=== PATIENT | female | born 1965 | race Two or more races ===

== ENCOUNTER 2017-05-31 16:46 | Emergency (ER) | payer OTHER, SELFPAY ==
[~2017-05-31] VITALS: Ht 160 cm; Wt 60.6 kg
[2017-05-31 16:49] VITALS: BP 129/82
== END 2017-05-31 18:46 | disposition home or self-care (01) ==
LOC: ED 18:25
DX: S63.630A Sprain of interphalangeal joint of right index finger, initial encounter (principal); S63.632A Sprain of interphalangeal joint of right middle finger, initial encounter; G43.909 Migraine, unspecified, not intractable, without status migrainosus; G89.11 Acute pain due to trauma; W19.XXXA Unspecified fall, initial encounter; Y93.89 Activity, other specified; Y92.410 Unspecified street and highway as the place of occurrence of the external cause; Y99.8 Other external cause status
CPT/HCPCS: 99284

== ENCOUNTER 2017-06-10 18:27 | Inpatient (IN) | payer OTHER ==
[~2017-06-10] VITALS: Ht 157.5 cm; Wt 60.5 kg
[2017-06-10] MEDS ORDERED: ASPIRIN 81 MG TABLET CHEW ONE (18:58)
[2017-06-10] MEDS ORDERED: MORPHINE SULFATE 4 MG/ML, 1ML ONE (18:58)
[2017-06-10] MEDS ORDERED: MECLIZINE CHEWABLE 25 MG TAB ONE (18:58)
[2017-06-10] MEDS ORDERED: ONDANSETRON 2MG/ML, 2ML ONE ×2 (18:59)
[2017-06-10] MEDS ORDERED: SODIUM CHLORIDE 0.9% 1,000ML IVBOLUS ONE (19:00)
[2017-06-10] MEDS ORDERED: MORPHINE SULFATE 4 MG/ML, 1ML IVPush PRN (19:00)
[2017-06-10] MEDS ORDERED: MECLIZINE CHEWABLE 25 MG TAB PO ONE (19:00)
[2017-06-10] MEDS ORDERED: ONDANSETRON 2MG/ML, 2ML IVPush ONE (19:00)
[2017-06-10] MEDS ORDERED: ASPIRIN 81 MG TABLET CHEW PO ONE (19:00)
[2017-06-10] MEDS ORDERED: SODIUM CHLORIDE FLUSH 10ML SYR IVF ONE (19:00)
[2017-06-10 19:06] LABS: HEMATOCRIT 44.9 % (34.6-47.8); WHITE BLOOD COUNT 7.1 x10^3/uL (3.4-10)
[2017-06-10 19:18] LABS: ASPARTATE AMINO TRANSFERASE 21 U/L (15-37); BLOOD UREA NITROGEN 20 mg/dL (7-18)
[2017-06-10 19:23] LABS: IS PT STATUS REG ER OR PRE ER? YES
[2017-06-10] MEDS ORDERED: SUMA25TA3 PO (20:47)
[2017-06-10 21:47] VITALS: BP 169/85
[2017-06-10] MEDS ORDERED: ATOR40TA78 PO (23:09)
[2017-06-10] MEDS ORDERED: TOPI50TA8 PO (23:11)
[2017-06-11] MEDS ORDERED: ONDANSETRON 2MG/ML, 2ML IVPush PRN
[2017-06-11] MEDS ORDERED: TEMAZEPAM 15 MG CAPSULE PO PRN
[2017-06-11] MEDS ORDERED: morphine SULFATE 10 MG/ML, 1ML IVPush PRN
[2017-06-11] MEDS: ENOXAPARIN 40 MG/0.4 ML SQ SCH ×2 (00:01→23:53)
[2017-06-11 00:12] LABS: IS PT STATUS REG ER OR PRE ER? NO
[2017-06-11 01:54] VITALS: BP 135/75
[2017-06-11] MEDS: ASPIRIN 325 MG TABLET EC PO SCH (06:00)
[2017-06-11 06:01] LABS: IS PT STATUS REG ER OR PRE ER? NO
[2017-06-11 07:04] VITALS: BP 130/81
[2017-06-11] MEDS ORDERED: REGADENOSON 0.4 MG/5 ML SYRINGE ONE (08:09)
[2017-06-11] MEDS: TOPIRAMATE 25 MG TABLET PO SCH (08:12)
[2017-06-11] MEDS: SODIUM CHLORIDE 0.9% 1,000 ML IV SCH ×3 (08:12→18:07)
[2017-06-11 12:23] VITALS: BP_SYST 157; BP_SYST 158; BP_DIAS 84; BP_DIAS 97
[2017-06-11 12:25] VITALS: BP 153/91
[2017-06-11 13:12] VITALS: BP 143/80
[2017-06-11] MEDS: MECLIZINE CHEWABLE 25 MG TAB PO PRN ×2 (18:07→23:53)
[2017-06-11] MEDS ORDERED: VENL150C6 PO (19:39)
[2017-06-11 20:27] VITALS: BP 162/87
[2017-06-11] MEDS: ACETAMINOPHEN 325 MG TABLET PO PRN (21:27)
[2017-06-12] MEDS: SODIUM CHLORIDE 0.9% 1,000 ML IV SCH ×2 (01:47→11:00)
[2017-06-12 01:49] VITALS: BP 148/81
[2017-06-12 04:56] VITALS: BP 151/82
[2017-06-12 05:21] LABS: BLOOD UREA NITROGEN 14 mg/dL (7-18)
[2017-06-12] MEDS: ASPIRIN 325 MG TABLET EC PO SCH (06:25)
[2017-06-12] MEDS ORDERED: MECL-85 PO (07:08)
[2017-06-12 07:09] VITALS: BP 149/77
[2017-06-12] MEDS: TOPIRAMATE 25 MG TABLET PO SCH (08:44)
[2017-06-12] MEDS: ACETAMINOPHEN 325 MG TABLET PO PRN (08:44)
[2017-06-12] MEDS: MECLIZINE CHEWABLE 25 MG TAB PO PRN (10:34)
== END 2017-06-12 13:30 | disposition home or self-care (01) | DRG 684 ==
LOC: ED 20:34 → EDIP 20:41 → 5SO 21:44
PROVIDERS: ADMIT Internal Medicine; ATTEND Internal Medicine
DX: N17.0 Acute kidney failure with tubular necrosis (principal); E78.5 Hyperlipidemia, unspecified; E86.0 Dehydration; R11.0 Nausea; G43.909 Migraine, unspecified, not intractable, without status migrainosus; R00.0 Tachycardia, unspecified; R42 Dizziness and giddiness
CPT/HCPCS: 36415; 70450; 71010; 78452; 80048; 80053; 80061; 81003; 83880; 84443; 84484; 85025; 93005; 93017; 96361; 96374; J1650; J2405; J2785; A9502; C9898; J7030

== ENCOUNTER → 2017-12-25 | Outpatient (CLI) | payer OTHER ==
[~2017-12-25] MED LIST: ATOR40TA78 PO; MECL-85 PO; SUMA25TA3 PO; TOPI50TA8 PO; VENL150C6 PO
== END ==
LOC: RAD 16:10
PROVIDERS: ATTEND Physician Assistant
DX: S52.592A Other fractures of lower end of left radius, initial encounter for closed fracture (principal); X58.XXXA Exposure to other specified factors, initial encounter; Y93.89 Activity, other specified; Y92.89 Other specified places as the place of occurrence of the external cause; Y99.8 Other external cause status

== ENCOUNTER 2018-01-03 12:14 | Day surgery (SDC) | payer OTHER ==
[2018-01-02 08:33] VITALS: BP 141/105
[~2018-01-03] VITALS: Ht 157.5 cm; Wt 59.8 kg
[~2018-01-03 12:14] MED LIST changes: +CITA10TA8 PO
[2018-01-03] MEDS ORDERED: LACTATED RINGERS 1,000 ML IV SCH (13:03)
[2018-01-03] MEDS ORDERED: ONDANSETRON ODT 8 MG ONE (13:13)
[2018-01-03] MEDS ORDERED: ACETAMINOPHEN 500 MG TABLET ONE (13:13)
[2018-01-03] MEDS ORDERED: ACETAMINOPHEN 500 MG TABLET PO ONE (13:30)
[2018-01-03] MEDS ORDERED: ONDANSETRON ODT 8 MG PO ONE (13:30)
[2018-01-03] MEDS ORDERED: MIDAZOLAM 1 MG/ML, 2ML ONE (14:11)
[2018-01-03] MEDS ORDERED: KETOROLAC 30 MG/1 ML ONE (14:38)
[2018-01-03] MEDS ORDERED: ALBUTEROL/IPRATROPIUM 2.5MG/0.5MG, 3 ML NPPB PRN (15:30)
[2018-01-03] MEDS ORDERED: DIAZEPAM 5 MG/ML, 2ML IVPush PRN (15:30)
[2018-01-03] MEDS ORDERED: FENTANYL PF 100 MCG/2ML IV PRN (15:30)
[2018-01-03] MEDS ORDERED: OXYcodone 5 MG/5 ML ORAL.SOL UDC PO PRN (15:30)
[2018-01-03] MEDS ORDERED: LABETALOL 5MG/ML, 20ML IV PRN (15:30)
[2018-01-03] MEDS ORDERED: hydrALAzine 20 MG/ML, 1ML IV PRN (15:30)
[2018-01-03] MEDS ORDERED: MEPERIDINE/PF 25MG/0.5ML IVPush PRN (15:30)
[2018-01-03] MEDS ORDERED: morphine SULFATE 10 MG/ML, 1ML IV PRN (15:30)
[2018-01-03] MEDS ORDERED: ONDANSETRON 2MG/ML, 2ML IVPush PRN (15:30)
[2018-01-03] MEDS ORDERED: METOCLOPRAMIDE 5 MG/ML, 2ML IV PRN (15:30)
[2018-01-03] MEDS ORDERED: PROMETHAZINE 25 MG/ML, 1ML IV PRN (15:30)
[2018-01-03] MEDS ORDERED: MIDAZOLAM 1 MG/ML, 2ML IV PRN (15:30)
[2018-01-03] MEDS ORDERED: PROMETHAZINE 12.5 MG SUPP PR PRN (15:30)
[2018-01-03] MEDS ORDERED: PROPOFOL 10 MG/ML, 20ML ONE (16:01)
[2018-01-03] MEDS ORDERED: DEXAMETHASONE 4 MG/ML, 1ML ONE (16:01)
[2018-01-03] MEDS ORDERED: ONDANSETRON 2MG/ML, 2ML ONE (16:01)
[2018-01-03] MEDS ORDERED: CEFAZOLIN 1,000 MG ONE (16:01)
[2018-01-03] MEDS ORDERED: OXYcodone 5 MG/5 ML ORAL.SOL UDC ONE (16:55)
== END 2018-01-03 18:10 | disposition home or self-care (01) ==
LOC: OUT 12:14
PROVIDERS: ATTEND Orthopaedic Surgery
DX: S52.572A Other intraarticular fracture of lower end of left radius, initial encounter for closed fracture (principal); E78.5 Hyperlipidemia, unspecified; G43.909 Migraine, unspecified, not intractable, without status migrainosus; X58.XXXA Exposure to other specified factors, initial encounter; Y93.89 Activity, other specified; Y92.89 Other specified places as the place of occurrence of the external cause; Y99.8 Other external cause status
CPT/HCPCS: 25609; 73100; 76001; C1713; C1762; J0690; J1100; J1885; J2250; J2704; J7120; Q0162; J2405

== ENCOUNTER 2018-07-18 15:39 | Emergency (ER) | payer OTHER ==
[~2018-07-18] VITALS: Ht 139.7 cm; Wt 59.0 kg
[2018-07-18] MEDS ORDERED: ONDANSETRON ODT 4 MG PO ONE (16:00)
[2018-07-18 16:09] LABS: BASOPHILS # (AUTO) 0.02 x10^3/uL (0-0.1); BASOPHILS % (AUTO) 0 % (0-1); EOSINOPHILS # (AUTO) 0.19 x10^3/uL (0-0.4); EOSINOPHILS % (AUTO) 3 % (1-7); LYMPHOCYTES # (AUTO) 2.51 x10^3/uL (1-3.4); LYMPHOCYTES % (AUTO) 33 % (22-44); MD NO; MEAN CORPUSCULAR HEMOGLOBIN 30.4 pg (27.0-34.8); MEAN CORPUSCULAR HGB CONC 34.1 g/dL (32.4-35.8); MEAN CORPUSCULAR VOLUME 89.2 fL (80-100); MEAN PLATELET VOLUME 8.6 fL (7.4-10.4); MONOCYTES # (AUTO) 0.48 x10^3/uL (0.2-0.8); MONOCYTES % (AUTO) 6 % (2-9); NEUTROPHILS # (AUTO) 4.41 x10^3/uL (1.8-6.8); NEUTROPHILS % (AUTO) 58 % (42-75); PLATELET COUNT 354 x10^3/uL (130-400); RED BLOOD COUNT 5.26 x10^6/uL (3.82-5.3); RED CELL DISTRIBUTION WIDTH 12.7 % (9.6-15.2)
[2018-07-18] MEDS ORDERED: FAMOTIDINE 20 MG/2 ML ONE (16:09)
[2018-07-18] MEDS ORDERED: MAALOX/HYOSCYAMINE/LIDOCAINE 45 ML BTL ONE (16:09)
[2018-07-18] MEDS ORDERED: ONDANSETRON ODT 4 MG ONE (16:09)
[2018-07-18 16:22] LABS: ALANINE AMINOTRANSFERASE 25 U/L (12-78); ALBUMIN 4.3 g/dL (3.4-5.0); ANION GAP 3 mmol/L (5-15); CHLORIDE 106 mmol/L (98-107); CREATININE 1.01 mg/dL (0.55-1.02)
[2018-07-18 16:24] LABS: ALKALINE PHOSPHATASE 119 U/L (45-117); BILIRUBIN,TOTAL 0.3 mg/dL (0.2-1.0); TOTAL PROTEIN 8.4 g/dL (6.4-8.2)
[2018-07-18] MEDS ORDERED: MAALOX/HYOSCYAMINE/LIDOCAINE 45 ML BTL PO ONE (16:30)
[2018-07-18] MEDS ORDERED: FAMOTIDINE 20 MG/2 ML IVP ONE (16:30)
[2018-07-18 16:54] LABS: TROPONIN I < 0.015 ng/mL (0.000-0.045)
[2018-07-18] MEDS ORDERED: SUMA100T4 PO (17:49)
[2018-07-18] MEDS ORDERED: ONDA4TAB13 SL (17:49)
[2018-07-18] MEDS ORDERED: SIMV20TA3 PO (17:49)
[2018-07-18 17:50] VITALS: BP 123/76
== END 2018-07-18 18:12 | disposition home or self-care (01) ==
LOC: ED 18:08
DX: K29.00 Acute gastritis without bleeding (principal); K59.00 Constipation, unspecified; G43.909 Migraine, unspecified, not intractable, without status migrainosus
CPT/HCPCS: 36415; 74022; 76700; 80053; 83690; 84484; 85025; 93005; 96374; 99285; Q0162; S0028

== ENCOUNTER 2018-07-24 23:35 | Emergency (ER) | payer OTHER ==
[~2018-07-24] VITALS: Ht 154.9 cm; Wt 60.0 kg
[~2018-07-24 23:35] MED LIST changes: +ONDA4TAB13 SL; +SIMV20TA3 PO; +SUMA100T4 PO
[2018-07-25] MEDS ORDERED: SODIUM CHLORIDE 0.9% 1,000 ML IV ONE (00:02)
[2018-07-25] MEDS ORDERED: ONDANSETRON 2MG/ML, 2ML ONE (00:16)
[2018-07-25] MEDS ORDERED: MORPHINE SULFATE 4 MG/ML, 1ML ONE (00:17)
[2018-07-25] MEDS ORDERED: MORPHINE SULFATE 4 MG/ML, 1ML IVPush PRN (00:30)
[2018-07-25] MEDS ORDERED: SODIUM CHLORIDE 0.9% 1,000ML IVBOLUS ONE (00:30)
[2018-07-25] MEDS ORDERED: ONDANSETRON 2MG/ML, 2ML IVPush ONE (00:30)
[2018-07-25] MEDS ORDERED: SODIUM CHLORIDE FLUSH 10ML SYR IVF ONE (00:30)
[2018-07-25 00:31] LABS: BASOPHILS # (AUTO) 0.01 x10^3/uL (0-0.1); BASOPHILS % (AUTO) 0 % (0-1); EOSINOPHILS # (AUTO) 0.11 x10^3/uL (0-0.4); EOSINOPHILS % (AUTO) 1 % (1-7); LYMPHOCYTES # (AUTO) 2.45 x10^3/uL (1-3.4); LYMPHOCYTES % (AUTO) 22 % (22-44); MD NO; MEAN CORPUSCULAR HEMOGLOBIN 30.7 pg (27.0-34.8); MEAN CORPUSCULAR HGB CONC 34.1 g/dL (32.4-35.8); MONOCYTES # (AUTO) 0.49 x10^3/uL (0.2-0.8); MONOCYTES % (AUTO) 4 % (2-9); NEUTROPHILS # (AUTO) 8.05 x10^3/uL (1.8-6.8); NEUTROPHILS % (AUTO) 73 % (42-75); PLATELET COUNT 340 x10^3/uL (130-400); RED CELL DISTRIBUTION WIDTH 12.5 % (9.6-15.2)
[2018-07-25 00:36] LABS: ALANINE AMINOTRANSFERASE 32 U/L (12-78); ALBUMIN 4.4 g/dL (3.4-5.0); ANION GAP 9 mmol/L (5-15); CALCIUM 9.4 mg/dL (8.5-10.1); CHLORIDE 103 mmol/L (98-107); CREATININE 1.17 mg/dL (0.55-1.02)
[2018-07-25 00:38] LABS: ALKALINE PHOSPHATASE 111 U/L (45-117); BILIRUBIN,TOTAL 0.3 mg/dL (0.2-1.0); TOTAL PROTEIN 8.7 g/dL (6.4-8.2)
[2018-07-25 01:28] VITALS: BP 122/71
[2018-07-25] MEDS ORDERED: METOCLOPRAMIDE 5 MG/ML, 2ML ONE (01:44)
[2018-07-25] MEDS ORDERED: METOCLOPRAMIDE 5 MG/ML, 2ML IVPush ONE (02:00)
== END 2018-07-25 02:15 | disposition home or self-care (01) ==
LOC: ED 23:56
DX: R11.2 Nausea with vomiting, unspecified (principal); E86.0 Dehydration; G43.119 Migraine with aura, intractable, without status migrainosus
CPT/HCPCS: 36415; 70450; 80053; 83690; 85025; 96361; 96374; 96375; 99285; J2405; J2765; J7030

== ENCOUNTER → 2018-11-25 | Outpatient (CLI) | payer OTHER | END | disposition home or self-care (01) | LOC: CFH 14:50 | PROVIDERS: ATTEND Family Medicine | DX: Z12.31 Encounter for screening mammogram for malignant neoplasm of breast (principal) | CPT/HCPCS: 77067 ==

== ENCOUNTER 2020-03-20 18:56 | Emergency (ER) | payer OTHER ==
[~2020-03-20] VITALS: Ht 154.9 cm; Wt 59.1 kg
[~2020-03-20 18:56] MED LIST changes: +SIMV20TA19 PO; -SIMV20TA3 PO
[2020-03-20 18:59] VITALS: BP 131/68
[2020-03-20] MEDS ORDERED: MORPHINE SULFATE 4 MG/ML, 1ML ONE (19:24)
[2020-03-20] MEDS ORDERED: ONDANSETRON 2MG/ML, 2ML ONE (19:24)
[2020-03-20] MEDS ORDERED: SODIUM CHLORIDE FLUSH 10ML SYR IVF ONE (19:30)
[2020-03-20] MEDS ORDERED: ONDANSETRON 2MG/ML, 2ML IVPush ONE (19:30)
[2020-03-20] MEDS ORDERED: MORPHINE SULFATE 4 MG/ML, 1ML IVPush PRN (19:30)
[2020-03-20 19:33] LABS: MICROSCOPIC NOT IND
--- NOTE | 2020-03-20 19:39 | NUR ---
PT MEDICATED PER MAR
[2020-03-20 20:00] LABS: ALANINE AMINOTRANSFERASE 19 U/L (12-78); ALBUMIN 4.1 g/dL (3.4-5.0); ANION GAP 7 mmol/L (5-15); CALCIUM 8.7 mg/dL (8.5-10.1); CHLORIDE 106 mmol/L (98-107); CREATININE 1.42 mg/dL (0.55-1.02)
[2020-03-20 20:02] LABS: BASOPHILS # (AUTO) 0.02 x10^3/uL (0-0.1); BASOPHILS % (AUTO) 0 % (0-1); EOSINOPHILS # (AUTO) 0.18 x10^3/uL (0-0.4); EOSINOPHILS % (AUTO) 3 % (1-7); LYMPHOCYTES # (AUTO) 1.99 x10^3/uL (1-3.4); LYMPHOCYTES % (AUTO) 30 % (22-44); MD NO; MEAN CORPUSCULAR HEMOGLOBIN 30.5 pg (27.0-34.8); MEAN CORPUSCULAR HGB CONC 33.6 g/dL (32.4-35.8); MEAN CORPUSCULAR VOLUME 90.9 fL (80-100); MEAN PLATELET VOLUME 8.8 fL (7.4-10.4); MONOCYTES # (AUTO) 0.36 x10^3/uL (0.2-0.8); MONOCYTES % (AUTO) 5 % (2-9); NEUTROPHILS % (AUTO) 62 % (42-75); PLATELET COUNT 354 x10^3/uL (130-400); RED BLOOD COUNT 4.66 x10^6/uL (3.82-5.3); RED CELL DISTRIBUTION WIDTH 12.6 % (9.6-15.2)
[2020-03-20 20:03] LABS: ALKALINE PHOSPHATASE 81 U/L (45-117); BILIRUBIN,TOTAL 0.2 mg/dL (0.2-1.0); TOTAL PROTEIN 7.8 g/dL (6.4-8.2)
== END 2020-03-20 21:17 | disposition home or self-care (01) ==
LOC: ED 20:49
DX: K21.0 Gastro-esophageal reflux disease with esophagitis (principal); K76.89 Other specified diseases of liver; G43.909 Migraine, unspecified, not intractable, without status migrainosus
CPT/HCPCS: 36415; 76700; 80053; 81003; 83690; 85025; 96374; 96375; 99284; J2270; J2405